=== PATIENT | male | born 1960 | race Caucasian/White ===

== ENCOUNTER 2017-05-14 03:35 | Emergency (ER) | payer OTHER ==
[2017-05-14] MEDS ORDERED: SODIUM CHLORIDE 0.9% 1000ML 2,000 ML IV STA (04:41)
[2017-05-14] MEDS ORDERED: ACETAMINOPHEN 500 MG TAB PO STA (04:41)
[2017-05-14 05:00] LABS: URINE APPEARANCE CLEAR (CLEAR); URINE BILIRUBIN NEG (NEG); URINE COLOR YELLOW; URINE EPITHELIAL CELL AUTO 0-5 /lpf (0-5); URINE NITRITE NEG (NEG); URINE PH 5.5 (4.5-7.5); URINE SPECIFIC GRAVITY 1.012 (1.000-1.030); UROBILINOGEN NEG (NEG); ZZUR CULT IF INDIC CLEAN CATCH NO
[2017-05-14 05:01] LABS: BASO % 0.2 %; BASO ABS # 0.02 K/uL (0-0.2); COMPLETE YES; HEMATOCRIT 44.1 % (42-52); IG% 0.2 %; LYMPH % 8.8 %; LYMPH ABS # 1.01 K/uL (1.2-3.4); MEAN CELL VOLUME 87.5 fL (80-100); MEAN CORPUSCULAR HEMOGLOBIN 31.7 pg (25-34); MEAN CORPUSCULAR HGB CONC 36.3 g/dl (32-36); MONO % 3.6 %; NEUT % 86.2 %; PLATELET COUNT 169 K/uL (130-400); RED BLOOD COUNT 5.04 M/uL (4.7-6.1); WHITE BLOOD COUNT 11.48 K/uL (4.8-10.8)
[2017-05-14 05:01] LABS: MANUAL MICROSCOPIC REQUIRED? NO; REVIEW REQ? NO
[2017-05-14 05:09] LABS: PROTHROMBIN TIME (PATIENT) 10.5 SECONDS (9.0-12.0)
[2017-05-14 05:22] LABS: ALT/SGPT 50 U/L (12-78); AST/SGOT 22 U/L (15-37); BLOOD UREA NITROGEN 14 mg/dl (7-18); CALCIUM 8.7 mg/dl (8.5-10.1); CARBON DIOXIDE 27 mmol/L (21-32); CHLORIDE 104 mmol/L (98-107); CREATININE 0.96 mg/dl (0.60-1.40); GLUCOSE 106 mg/dl (70-99); MAGNESIUM 1.8 mg/dl (1.8-2.4); POTASSIUM 3.5 mmol/L (3.5-5.1); SODIUM 139 mmol/L (136-145)
[2017-05-14 05:27] LABS: ALKALINE PHOSPHATASE 95 U/L (45-117); CKMB/CK RATIO 0.5 (0-3.0)
[2017-05-14] MEDS ORDERED: CZR25 PO (06:06)
[2017-05-14] MEDS ORDERED: NRV/10 PO (06:06)
--- NOTE | 2017-05-14 06:20 | EMERGENCY ROOM VISIT NOTE ---
History Report prepared by Lesley: Andrea Lance Under the Supervision of: Dr. Malcolm Ruiz M.D. First contact with patient: 04:41 Chief Complaint: ABDOMINAL PAIN Stated Complaint: DIZZINESS,CHILLS,NEAR SYNCOPE History of Present Illness The patient is a 57 year old male who presents to the Emergency Room with complaints of an episode of generalized shaking occurring about 1 hour ago. He also complains of chills and dizziness during the episode as well. He was found to have a low-grade fever upon arrival to the ED. The patient denies any abdominal pain, cough, SOB, chest pain, or increased diarrhea. He has a history of a complete colectomy due to ulcerative colitis. Source of History: patient Onset: 1 hour ago Position: other (generalized) Quality: other (shaking) Timing: other (episode) Associated Symptoms: + chills, No cough, No chest pain, No SOB, No abdominal pain, No diarrhea (increased) Note: Additional symptoms: dizziness during the episode. Review of Systems See HPI for pertinent positives & negatives. A total of 10 systems reviewed and were otherwise negative. Past Medical & Surgical Medical Problems: (1) Ulcerative colitis Surgical Problems: (1) H/O total colectomy Family History No pertinent family history stated. Social History Housing Status: lives with family Occupation Status: employed Current/Historical Medications Scheduled Amlodipine Besylate (Amlodipine Besylate), 10 MG PO DAILY Losartan Potassium (Losartan Potassium), 25 MG PO DAILY Allergies Coded Allergies: No Known Allergies (Unverified , 05/14/17) Physical Exam Vital Signs Date Time Temp Pulse Resp B/P (MAP) Pulse Ox O2 Delivery O2 Flow Rate FiO2 05/14/17 06:47 74 16 132/61 97 05/14/17 06:10 83 18 142/99 94 Room Air 05/14/17 03:47 114 Physical Exam GENERAL: Patient is well appearing and in no acute distress. HEENT: No acute trauma, normocephalic atraumatic, mucous membranes moist, no nasal congestion, no scleral icterus. NECK: No stridor, no adenopathy, no meningismus, trachea is midline. LUNGS: No dyspnea. Clear to auscultation and equal bilaterally. No wheeze, no rhonchi. HEART: Tachycardic rate with a normal rhythm. No murmurs, rubs, gallops appreciated. ABDOMEN: Soft, nontender, bowel sounds positive, no masses appreciated, no peritonitis. BACK: No midline tenderness, no CVA tenderness EXTREMITIES: Normal motion all extremities, no cyanosis, no edema. NEUROLOGIC: Alert and oriented, no acute motor or sensory deficits, no focal weakness, cranial nerves grossly intact. SKIN: No rash, no jaundice, no diaphoresis. Medical Decision & Procedures ER Provider Diagnostic Interpretation: X ray results are stated below per my interpretation: Chest: 1 view: No infiltrate, no effusion, normal cardiac border. Laboratory Results 05/14/17 03:25 Red Blood Count 5.04, Mean Corpuscular Volume 87.5, Mean Corpuscular Hemoglobin 31.7, Mean Corpuscular Hemoglobin Concent 36.3, Mean Platelet Volume 10.0, Neutrophils (%) (Auto) 86.2, Lymphocytes (%) (Auto) 8.8, Monocytes (%) (Auto) 3.6, Eosinophils (%) (Auto) 1.0, Basophils (%) (Auto) 0.2, Neutrophils # (Auto) 9.90, Lymphocytes # (Auto) 1.01, Monocytes # (Auto) 0.41, Eosinophils # (Auto) 0.12, Basophils # (Auto) 0.02 05/14/17 03:25 Test 05/14/17 03:25 05/14/17 04:00 05/14/17 06:09 05/14/17 06:10 White Blood Count 11.48 K/uL (4.8-10.8) Red Blood Count 5.04 M/uL (4.7-6.1) Hemoglobin 16.0 g/dL (14.0-18.0) Hematocrit 44.1 % (42-52) Mean Corpuscular Volume 87.5 fL (80-100) Mean Corpuscular Hemoglobin 31.7 pg (25-34) Mean Corpuscular Hemoglobin Concent 36.3 g/dl (32-36) Platelet Count 169 K/uL (130-400) Mean Platelet Volume 10.0 fL (7.4-10.4) Neutrophils (%) (Auto) 86.2 % Lymphocytes (%) (Auto) 8.8 % Monocytes (%) (Auto) 3.6 % Eosinophils (%) (Auto) 1.0 % Basophils (%) (Auto) 0.2 % Neutrophils # (Auto) 9.90 K/uL (1.4-6.5) Lymphocytes # (Auto) 1.01 K/uL (1.2-3.4) Monocytes # (Auto) 0.41 K/uL (0.11-0.59) Eosinophils # (Auto) 0.12 K/uL (0-0.5) Basophils # (Auto) 0.02 K/uL (0-0.2) RDW Standard Deviation 39.0 fL (36.4-46.3) RDW Coefficient of Variation 12.3 % (11.5-14.5) Immature Granulocyte % (Auto) 0.2 % Immature Granulocyte # (Auto) 0.02 K/uL (0.00-0.02) Prothrombin Time 10.5 SECONDS (9.0-12.0) Prothromb Time International Ratio 1.0 (0.9-1.1) Anion Gap 8.0 mmol/L (3-11) Estimated GFR () 102.7 Estimated GFR (Non- 88.6 BUN/Creatinine Ratio 15.0 (10-20) Calcium Level 8.7 mg/dl (8.5-10.1) Magnesium Level 1.8 mg/dl (1.8-2.4) Total Bilirubin 1.1 mg/dl (0.2-1) Direct Bilirubin 0.2 mg/dl (0-0.2) Aspartate Amino Transf (AST/SGOT) 22 U/L (15-37) Alanine Aminotransferase (ALT/SGPT) 50 U/L (12-78) Alkaline Phosphatase 95 U/L (45-117) Total Creatine Kinase 128 U/L (39-308) Creatine Kinase MB 0.7 ng/ml (0.5-3.6) Creatine Kinase MB Ratio 0.5 (0-3.0) Troponin I < 0.015 ng/ml (0-0.045) Total Protein 7.6 gm/dl (6.4-8.2) Albumin 4.2 gm/dl (3.4-5.0) Urine Color YELLOW Urine Appearance CLEAR (CLEAR) Urine pH 5.5 (4.5-7.5) Urine Specific [place] 1.012 (1.000-1.030) Urine Protein NEG (NEG) Urine Glucose (UA) NEG (NEG) Urine Ketones NEG (NEG) Urine Occult Blood NEG (NEG) Urine Nitrite NEG (NEG) Urine Bilirubin NEG (NEG) Urine Urobilinogen NEG (NEG) Urine Leukocyte Esterase NEG (NEG) Urine WBC (Auto) 0 /hpf (0-5) Urine RBC (Auto) 0-4 /hpf (0-4) Urine Hyaline Casts (Auto) 1-5 /lpf (0-5) Urine Epithelial Cells (Auto) 0-5 /lpf (0-5) Urine Bacteria (Auto) NEG (NEG) Bedside Troponin I < 0.030 ng/ml (0-0.045) Bedside Lactic Acid Venous 1.62 mmol/L (0.90-1.70) Laboratory results as reviewed by me. Medications Administered Medications (Trade) Dose Ordered Sig/Jory Route Start Time Stop Time Status Last Admin Dose Admin Sodium Chloride 2,000 ml @ 999 mls/hr Q2H1M STAT IV 05/14/17 04:41 05/14/17 06:41 DC 05/14/17 04:41 999 MLS/HR Acetaminophen (Tylenol Tab) 1,000 mg NOW STAT PO 05/14/17 04:41 05/14/17 04:42 DC 05/14/17 04:41 1,000 MG ECG Indication: other (shakiness) Rate (beats per minute): 102 Rhythm: sinus tachycardia Findings: no acute ischemic change, no ectopy ED Course 0422: The patient was evaluated in room A3. A complete history and physical exam was performed. 0435: Nursing staff is aware of the patient's need for two IV sites, two liters of normal saline, and blood cultures. 0441: Ordered Tylenol Tab 1000 mg PO, Sodium Chloride 2000 ml @ 999 mls/hr IV. 0540: I reassessed the patient. He feels fine and is receiving IV fluids. His heart rate is 90. Repeat abdominal exam is benign. The patient notes that he has not had any recent international travel. 0645: Reevaluated the patient. Discussed results and discharge instructions: he verbalized understanding and agreement. The patient is ready for discharge. Medical Decision Differential: Viral, Pharyngitis, Cellulitis, Pneumonia, Influenza, Meningitis, Sepsis, Bacteremia, UTI/Pyelonephritis, Endocrine, Toxicologic, amongst other pathologies entertained. 57 yr old male arrives following episode of shakes and fever with brief episode of abdominal pain. Currently resolved and feeling well. Tachy with mild dehydration by exam. Initial Lactic acid mildly elevated thus went ahead with blood cultures as tachy with fever. WBC minimally elevated of non-specific meaning. Given 2 L NSS and Tylenol resulting in improvement in HR, making urine and wishing to go home. Repeat Lactic improving. Repeat trop negative. EKG looks OK I do not feel this is ACS. Repeat abdominal exams are all benign. I discussed the possibility that this is early infection, even something that might be surgical but with no symptoms now, feeling fine, improvement in vitals and patient wishing to go home I feel that doing further lab/imaging not currently indicated. Reviewed Blood cultures take ~48 hours and risks of false positives, but also what positive would mean. I do not appreciate murmur and he does not have typical findings of endocarditis. His urine is clear. No suspicion for tox cause. No URI symptoms to blame this on. This patient was seen during [facility] down-time and chart completed at later date/time. Please note that times of orders, medications, and testing as well as re-evaluations and consultations may not accurately reflect actual times they were placed/preformed. Medication Reconcilliation Current Medication List: was personally reviewed by me Blood Pressure Screening Patient's blood pressure: Elevated blood pressure Blood pressure disposition: Elevated BP felt to be situational Impression Primary Impression: Acute febrile illness Scribe Attestation The scribe's documentation has been prepared under my direction and personally reviewed by me in its entirety. I confirm that the note above accurately reflects all work, treatment, procedures, and medical decision making performed by me. Departure Information Dispostion Home / Self-Care Referrals No Doctor, Assigned (PCP) Patient Instructions My [facility] Additional Instructions Please keep well hydrated and rest over the next 24 hours. Return if increasing abdominal pain, vomiting, fevers, or other concerning symptoms. Call 911 if severe symptoms, chest pain, passing out, difficulty breathing or other severe concerns.
--- NOTE | 2017-05-14 06:28 | DIAGNOSTIC IMAGING REPORT ---
CHEST ONE VIEW PORTABLE CLINICAL HISTORY: fever COMPARISON STUDY: No previous studies for comparison. FINDINGS: The cardiac and mediastinal contours are normal. There is no evidence of focal pulmonary consolidation. There is no evidence of failure. No pleural effusions are visualized.[ IMPRESSION: No active disease in the chest. Electronically signed by: Seth Ku M.D. 05/14/2017 6:26 AM Dictated Date/Time: 05/14/2017 6:26 AM
[2017-05-14 06:47] VITALS: BP 132/61; PULSE 74; O2SAT 97
== END 2017-05-14 06:48 | disposition home or self-care (01) ==
LOC: C.EDA 04:31
DX: R50.9 Fever, unspecified (principal); R00.0 Tachycardia, unspecified; Z86.19 Personal history of other infectious and parasitic diseases; Z90.49 Acquired absence of other specified parts of digestive tract; Z79.899 Other long term (current) drug therapy